=== PATIENT | female | born 1940 | race Caucasian/White ===

== ENCOUNTER 2022-03-13 17:39 | Inpatient (IN) ==
[2022-03-13] MEDS ORDERED: SODIUM CHLORIDE 0.9% 500 ML IV STA (19:45)
[2022-03-13 20:12] LABS: Urine Color Amber (Yellow)
[2022-03-13 20:13] LABS: Bilirubin,Urine Negative (Negative); Blood, Urine Negative (Negative); Glucose,Urine (UA) 100 mg/dL (Negative); Ketones,Urine 15 mg/dL (Negative); Nitrite,Urine Positive (Negative); Protein,Urine 30 mg/dL (Negative); Urine Appearance Clear (Clear)
[2022-03-13 20:14] LABS: Mucus,Urine Occasional /LPF (Occasional); RBC,Urine 4 /HPF (0-4)
[2022-03-13] MEDS ORDERED: cefTRIAXone 1,000 MG in SODIUM CHLORIDE 0.9% 100 ML IV STA (21:07)
[2022-03-13 22:00] LABS: Basophils % 0.5 % (0.0-0.8); Hemoglobin 11.3 GM/DL (12.0-16.0); Immature Granulocytes % 0.5 %; Immature Granulocytes Absolute 0.02 #; Lymphocytes # 0.7 10*3/uL (1.4-4.0); Lymphocytes % 15.2 % (21.3-54.2); Mean Corpuscular HGB Conc 33.2 GM/DL (32-36); Mean Corpuscular Volume 94.2 FL (87-102); Mean Platelet Volume 8.6 FL (9.6-12.0); Monocytes # 0.8 10*3/uL (0.11-0.8); Monocytes % 18.7 % (1.7-12.7); Neutrophils % 65.1 % (38.7-73.9); Platelet Count 348 T/CUMM (130-400); Red Blood Count 3.61 MC/CUMM (3.8-5.5); Red Cell Distribution Width 13.3 % (9.3-17.3); White Blood Count 4.3 T/CUMM (4-12)
[2022-03-13 22:22] LABS: Alanine Aminotransferase 20 U/L (13-56); Albumin 3.8 G/DL (3.4-5.0); Alkaline Phosphatase 40 U/L (45-117); Aspartate Amino Transferase 25 U/L (0-37); Bilirubin,Total < 0.39 MG/DL (0.20-1.00); Blood Urea Nitrogen 15 MG/DL (7-18); Calcium 8.7 MG/DL (8.5-10.1); Carbon Dioxide 27 MMOL/L (21-32); Chloride 93 MMOL/L (98-107); Glucose 108 MG/DL (74-106); Osmolality,Calculated 254.4 MOS/KG (273-304); Potassium 4.7 MMOL/L (3.5-5.1); Sodium 126 MMOL/L (136-145); Total Protein 7.1 G/DL (6.4-8.2)
[2022-03-13 22:57] LABS: Lymphocytes 12 % (20-55); Platelet Estimate Normal; Total Cells Counted 100
[2022-03-13] MEDS ORDERED: GLUCAGON 1 MG VIAL IM PRN (23:32)
[2022-03-13] MEDS ORDERED: ONDANSETRON 4 MG/2 ML VIAL IV PRN (23:32)
[2022-03-13] MEDS ORDERED: DEXTROSE 10% 250 ML BAG IV PRN (23:41)
[2022-03-14] MEDS: SODIUM CHLORIDE 0.9% 1,000 ML IV SCH ×2 (00:55→13:32)
[2022-03-14 07:05] LABS: Basophils % 0.2 % (0.0-0.8); Eosinophils # 0.2 10*3/uL (0.0-0.87); Eosinophils % 2.7 % (0.00-10.9); Hematocrit 32.7 VOL% (35.7-47.0); Hemoglobin 10.9 GM/DL (12.0-16.0); Immature Granulocytes % 0.7 %; Immature Granulocytes Absolute 0.04 #; Lymphocytes # 0.6 10*3/uL (1.4-4.0); Lymphocytes % 11.2 % (21.3-54.2); Mean Corpuscular HGB Conc 33.3 GM/DL (32-36); Mean Corpuscular Volume 94.2 FL (87-102); Mean Platelet Volume 8.1 FL (9.6-12.0); Monocytes # 0.7 10*3/uL (0.11-0.8); Monocytes % 11.9 % (1.7-12.7); Neutrophils % 73.3 % (38.7-73.9); Platelet Count 287 T/CUMM (130-400); Red Blood Count 3.47 MC/CUMM (3.8-5.5); Red Cell Distribution Width 13.3 % (9.3-17.3); White Blood Count 5.6 T/CUMM (4-12)
[2022-03-14] MEDS: INSULIN REGULAR 100 UNIT/ML SUBCUT SCH ×4 (07:18→23:05)
[2022-03-14 07:23] LABS: Alanine Aminotransferase 21 U/L (13-56); Albumin 3.3 G/DL (3.4-5.0); Alkaline Phosphatase 36 U/L (45-117); Aspartate Amino Transferase 21 U/L (0-37); Bilirubin,Total < 0.39 MG/DL (0.20-1.00); Blood Urea Nitrogen 12 MG/DL (7-18); Calcium 7.9 MG/DL (8.5-10.1); Carbon Dioxide 24 MMOL/L (21-32); Chloride 98 MMOL/L (98-107); Glucose 112 MG/DL (74-106); Osmolality,Calculated 260.8 MOS/KG (273-304); Potassium 3.9 MMOL/L (3.5-5.1); Sodium 130 MMOL/L (136-145); Total Protein 6.6 G/DL (6.4-8.2)
[2022-03-14] MEDS: ACETAMINOPHEN 325 MG TABLET PO PRN (08:00)
[2022-03-14] MEDS: PANTOPRAZOLE 40 MG TABLET PO SCH (09:24)
[2022-03-14] MEDS: ENOXAPARIN 40 MG/0.4 ML SYRINGE SUBCUT SCH (09:24)
[2022-03-14] MEDS ORDERED: cefTRIAXone 1,000 MG in SODIUM CHLORIDE 0.9% 100 ML IV SCH (21:00)
[2022-03-15] MEDS: SODIUM CHLORIDE 0.9% 1,000 ML IV SCH (03:01)
[2022-03-15 05:39] LABS: Calcium 7.4 MG/DL (8.5-10.1); Osmolality,Calculated 247.6 MOS/KG (273-304); Potassium 3.8 MMOL/L (3.5-5.1)
[2022-03-15] MEDS: ACETAMINOPHEN 325 MG TABLET PO PRN (05:47)
[2022-03-15] MEDS: INSULIN REGULAR 100 UNIT/ML SUBCUT SCH ×2 (07:15→11:31)
[2022-03-15] MEDS: PANTOPRAZOLE 40 MG TABLET PO SCH (08:18)
[2022-03-15] MEDS: ENOXAPARIN 40 MG/0.4 ML SYRINGE SUBCUT SCH (08:18)
[2022-03-15 08:28] LABS: Basophils % 0.2 % (0.0-0.8); Hematocrit 30.6 VOL% (35.7-47.0); Hemoglobin 10.1 GM/DL (12.0-16.0); Immature Granulocytes % 0.3 %; Immature Granulocytes Absolute 0.02 #; Lymphocytes # 0.8 10*3/uL (1.4-4.0); Lymphocytes % 12.6 % (21.3-54.2); Mean Corpuscular Volume 94.4 FL (87-102); Mean Platelet Volume 8.1 FL (9.6-12.0); Monocytes # 0.6 10*3/uL (0.11-0.8); Monocytes % 8.8 % (1.7-12.7); Neutrophils % 78.1 % (38.7-73.9); Platelet Count 239 T/CUMM (130-400); Red Blood Count 3.24 MC/CUMM (3.8-5.5); Red Cell Distribution Width 13.1 % (9.3-17.3); White Blood Count 6.4 T/CUMM (4-12)
[2022-03-15] MEDS ORDERED: MAGNESIUM SULF RIDER 2 GM/50 ML PREMIX IV ONE (09:40)
[2022-03-15 09:59] LABS: Calcium 7.4 MG/DL (8.5-10.1); Osmolality,Calculated 257.2 MOS/KG (273-304); Potassium 3.3 MMOL/L (3.5-5.1)
[2022-03-15 10:50] VITALS: BP 124/64
[2022-03-15] MEDS ORDERED: POTASSIUM CHLORIDE 20 MEQ TABLET PO ONE (11:07)
== END 2022-03-15 13:40 | disposition home or self-care (01) | DRG 689 ==
LOC: N.ED 17:39 → SUATTDRO 23:40 → N.EDINP 23:40 → N.3E 03-14 01:11
PROVIDERS: ADMIT Emergency Medicine; ATTEND Internal Medicine